=== PATIENT | female | born 1990 | race Hispanic/Latino ===

== ENCOUNTER 2017-07-21 13:33 | Emergency (ER) | payer MEDICAID ==
[2017-07-21 13:43] VITALS: BP 136/88
--- NOTE | 2017-07-21 14:29 | EDM.PDOC ---
ED HPI GENERAL MEDICAL PROBLEM - General Chief Complaint: Respiratory Problem Stated Complaint: SOB Time Seen by Provider: 07/21/17 14:09 Source of Information: Reports: Patient History Limitations: Reports: No Limitations - History of Present Illness INITIAL COMMENTS - FREE TEXT/NARRATIVE: 26-year-old female presents for evaluation treatment of shortness of breath and chest tightness. Patient reports that she first appreciated the shortness of breath last night. She states she was not doing anything in particular at the time and was simply resting. She states that she had chest tightness but this has now mostly resolved but when it does come and go last only a few seconds. She also reports associated palpitations. She reports nausea last night but the nausea has now resolved. No fevers, cough, cold symptoms or vomiting. She denies any pain in her legs are swelling in her legs. Patient reports recent travel of a flying [place] from [place] approximate 2 weeks ago. Her fianc lives in [place] and they have a home in [facility] and held back and forth. She is not on any medications. No oral contraceptive pills. - Related Data Allergies Allergy/AdvReac Type Severity Reaction Status Date / Time No Known Allergies Allergy Verified 07/21/17 13:42 Home Meds: Home Meds . [No Known Home Meds] 07/21/17 [History] Past Medical History - Past Health History Medical/Surgical History: Denies Medical/Surgical History Social & Family History - Tobacco Use Smoking Status *Q: Never Smoker - Recreational Drug Use Recreational Drug Use: No ED ROS GENERAL - Review of Systems Review Of Systems: See Below Constitutional: Denies: Fever HEENT: Denies: Ear Pain, Throat Pain Respiratory: Reports: Shortness of Breath. Denies: Cough Cardiovascular: Reports: Chest Pain (reports chest tightness ), Palpitations GI/Abdominal: Reports: Nausea (last night now resolved). Denies: Vomiting Musculoskeletal: Reports: Other (no leg swelling). Denies: Leg Pain ED EXAM, GENERAL - Physical Exam Exam: See Below Exam Limited By: No Limitations General Appearance: Alert, WD/WN, No Apparent Distress Ears: Normal External Exam, Normal Canal, Hearing Grossly Normal, Normal TMs Nose: Normal Inspection Throat/Mouth: Normal Inspection, Normal Lips, Normal Teeth, Normal Gums, Normal Oropharynx, Normal Voice, No Airway Compromise Respiratory/Chest: No Respiratory Distress, Lungs Clear, Normal Breath Sounds Cardiovascular: Normal Peripheral Pulses, Regular Rate, Rhythm, No Murmur Extremities: Normal Inspection, Non-Tender, No Pedal Edema. No: Rigo's Sign Neurological: Alert, Oriented, Normal Cognition Psychiatric: Normal Affect, Normal Mood Skin Exam: Warm, Dry, Normal Color Course - Vital Signs Last Recorded V/S: Last Vital Signs Temp 36.4 C 07/21/17 13:40 Pulse 95 07/21/17 13:40 Resp 16 07/21/17 13:40 BP 136/88 07/21/17 13:40 Pulse Ox 99 07/21/17 13:40 - Orders/Labs/Meds Orders: Active Orders 24 hr Category Date Time Status Chest 2V [CR] Stat Exams 07/21/17 14:22 Taken Labs: Laboratory Tests 07/21/17 07/21/17 07/21/17 Range/Units 14:55 14:55 14:55 WBC 6.69 (3.98-10.04) K/mm3 RBC 4.98 (3.98-5.22) M/mm3 Hgb 14.0 (11.2-15.7) gm/L Hct 42.4 (34.1-44.9) % MCV 85.1 (79.4-94.8) fl MCH 28.1 (25.6-32.2) pg MCHC 33.0 (32.2-35.5) g/dl RDW Std Deviation 36.2 L (36.4-46.3) fL Plt Count 376 H (182-369) K/mm3 MPV 9.2 L (9.4-12.3) fl Neut % (Auto) 58.6 (34.0-71.1) % Lymph % (Auto) 32.3 (19.3-51.7) % [place] % (Auto) 7.6 (4.7-12.5) % Eos % (Auto) 0.9 (0.7-5.8) Baso % (Auto) 0.3 (0.1-1.2) % Neut # (Auto) 3.92 (1.56-6.13) K/mm3 Lymph # (Auto) 2.16 (1.18-3.74) K/mm3 [place] # (Auto) 0.51 H (0.24-0.36) K/mm3 Eos # (Auto) 0.06 (0.04-0.36) K/mm3 Baso # (Auto) 0.02 (0.01-0.08) K/mm3 D-Dimer, Quantitative 0.19 (0.19-0.59) mg/L Sodium 140 (136-145) mEq/L Potassium 3.9 (3.5-5.1) mEq/L Chloride 105 (98-107) mEq/L Carbon Dioxide 29 (21-32) mEq/L Anion Gap 9.9 (5-15) BUN 12 (7-18) mg/dL Creatinine 0.8 (0.55-1.02) mg/dL Est Cr Clr Drug Dosing 77.22 mL/min Estimated GFR (MDRD) > 60 (>60) mL/min BUN/Creatinine Ratio 15.0 (14-18) Glucose 103 (74-106) mg/dL Calcium 9.6 (8.5-10.1) mg/dL TSH 3rd Generation 1.861 (0.358-3.74) uIU/mL - Radiology Interpretation Free Text/Narrative:: chest x-ray two-view shows no acute thoracic process. - Re-Assessments/Exams Free Text/Narrative Re-Assessment/Exam: 07/21/17 15:53 I reviewed the x-ray and lab results with the patient. I'm also suspicious for anxiety causing her symptoms. I will have her follow-up with family medicine. Discharge instructions as documented. Departure - Departure Time of Disposition: 15:53 Disposition: Home, Self-Care 01 Condition: Good Clinical Impression: Anxiety - Discharge Information Instructions: Dysphoria Referrals: PCP,None [Primary Care Provider] - Nela Dunn PA-C [Physician Curing Room Supervisor] - Forms: ED Department Discharge Additional Instructions: go home and rest. Follow-up with your primary care provider. If you would like a primary care provider Allyn recommend Nela Dunn Pa-C. Please call [phone] to schedule an appoint with her at the [facility]. Please return to the ER if your symptoms change or worsen. - My Orders Last 24 Hours: My Active Orders 07/21/17 14:22 Chest 2V [CR] Stat - Assessment/Plan Last 24 Hours: My Active Orders 07/21/17 14:22 Chest 2V [CR] Stat
--- NOTE | 2017-07-21 19:58 | CR ---
Chest: Two views of the chest were obtained. Comparison: No previous study. Heart size and mediastinum are normal. Lungs are clear. Bony structures are within normal limits for the patient's age. Impression: 1. Nothing acute is identified on two-view chest x-ray. Diagnostic code #1
== END 2017-07-21 16:12 | disposition home or self-care (01) ==
LOC: EDBD 13:33 → JD.ED 13:33
DX: F41.9 Anxiety disorder, unspecified (principal)
CPT/HCPCS: 36415; 71020; 71020-26; 80048; 84443; 85025; 85379; 99283; 99285

== ENCOUNTER 2017-07-30 17:22 | Emergency (ER) | payer MEDICAID ==
[2017-07-30 17:31] VITALS: BP 132/86
--- NOTE | 2017-07-30 17:32 | EDM.PDOC ---
ED HPI GENERAL MEDICAL PROBLEM - General Chief Complaint: Skin Complaint Stated Complaint: HIVES BREAKOUT Time Seen by Provider: 07/30/17 17:31 Source of Information: Reports: Patient History Limitations: Reports: No Limitations - History of Present Illness INITIAL COMMENTS - FREE TEXT/NARRATIVE: 26-year-old female presents to the ED with generalized urticaria with severe itch. This started last night and has progressed as the day has gone on. Start Zyrtec once this morning and got no relief. A [id number] mom. Been ill in any fashion or form in the last month. She took some form of herbal medication about a week ago but only took it one time. She has not taken any other meds and. She does not take aspirin Motrin or Aleve. She did have seafood last night which she's had many times in the past without any development of hives. My impression this is likely foodborne illness. She is showing no signs of respiratory embarrassment such as wheezing or cough and no diarrhea. She has no trouble swallowing. No past history of hives. Onset: Sudden Onset Date: 07/29/17 Onset Time: 22:00 Duration: Hour(s): Location: Reports: Generalized Quality: Reports: Other Severity: Moderate (generalized itching) Improves with: Reports: None Worsens with: Reports: None Context: Denies: Activity, Exercise, Lifting, Sick Contact, Trauma, Other Associated Symptoms: Reports: Other (severe pruritus.). Denies: Confusion, Chest Pain, Cough, cough w sputum, Diaphoresis, Fever/Chills, Headaches, Loss of Appetite, Malaise, Nausea/Vomiting, Rash, Seizure, Shortness of Breath, Syncope, Weakness Treatments ACID BATH MIXER: Reports: Other (see below) (Zyrtec 10 mg tablet once this morning) - Related Data Allergies Allergy/AdvReac Type Severity Reaction Status Date / Time No Known Allergies Allergy Verified 07/30/17 17:30 Home Meds: Home Meds Famotidine [Pepcid] 20 mg PO DAILY #10 tablet 07/30/17 [Rx] Prednisone [IJD: predniSONE] 20 mg PO BID #10 tab 07/30/17 [Rx] Past Medical History - Past Health History Medical/Surgical History: Denies Medical/Surgical History Social & Family History - Tobacco Use Smoking Status *Q: Never Smoker - Recreational Drug Use Recreational Drug Use: No - Living Situation & Occupation Living situation: Reports: 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.) ED ROS GENERAL - Review of Systems Review Of Systems: See Below Constitutional: Reports: No Symptoms HEENT: Reports: No Symptoms Respiratory: Reports: No Symptoms Cardiovascular: Reports: No Symptoms Endocrine: Reports: No Symptoms GI/Abdominal: Reports: No Symptoms : Reports: No Symptoms Musculoskeletal: Reports: No Symptoms Skin: Reports: No Symptoms Neurological: Reports: No Symptoms Psychiatric: Reports: No Symptoms Hematologic/Lymphatic: Reports: No Symptoms Immunologic: Reports: No Symptoms ED EXAM, SKIN/RASH Exam: See Below Exam Limited By: No Limitations General Appearance: Alert, WD/WN, Moderate Distress (due to itching.) Eye Exam: Bilateral Eye: Periorbital Changes (bilateral periorbital swelling and erythema) Throat/Mouth: Normal Inspection, Normal Lips, Normal Teeth, Normal Oropharynx, Other Head: Atraumatic, Normocephalic (uvula and floor the mouth are normal.) Neck: Normal Inspection, Supple, Non-Tender, Full Range of Motion. No: Lymphadenopathy (L), Lymphadenopathy (R) Respiratory/Chest: No Respiratory Distress, Lungs Clear, Normal Breath Sounds, No Accessory Muscle Use. No: Wheezing Cardiovascular: Normal Peripheral Pulses, Regular Rate, Rhythm, No Edema, No Gallop, No Murmur, Tachycardia (resting tachycardia at 100/m) Peripheral Pulses: 3+: Posterior Tibial (L), Posterior Tibial (R), Dorsalis Pedis (L), Dorsalis Pedis (R) GI/Abdominal: Normal Bowel Sounds, Soft, Non-Tender, No Organomegaly, No Abnormal Bruit, No Mass, Pelvis Stable Back Exam: Normal Inspection, Full Range of Motion. No: CVA Tenderness (L), CVA Tenderness (R) Extremities: Normal Inspection, Normal Range of Motion, Non-Tender, Normal Capillary Refill Neurological: Alert, Oriented, CN II-XII Intact, Normal Cognition Location, Skin: Generalized Characteristics: Urticarial Associated features: Warmth, Tenderness, Swelling Course - Vital Signs Last Recorded V/S: Last Vital Signs Temp 36.6 C 07/30/17 17:28 Pulse 102 H 07/30/17 17:28 Resp 18 07/30/17 17:28 BP 132/86 07/30/17 17:28 Pulse Ox 100 07/30/17 17:28 - Orders/Labs/Meds Meds: Medications Discontinued Medications Generic Name Dose Route Start Last Admin Trade Name Shayy PRN Reason Stop Dose Admin Diphenhydramine HCl 50 mg 07/30/17 17:40 07/30/17 17:46 Benadryl PO 07/30/17 17:41 50 mg ONETIME ONE Administration Famotidine 20 mg 07/30/17 17:40 07/30/17 17:46 Pepcid PO 07/30/17 17:41 20 mg ONETIME ONE Administration Prednisone 30 mg 07/30/17 17:39 07/30/17 17:46 Prednisone PO 07/30/17 17:40 30 mg ONETIME ONE Administration - Radiology Interpretation Free Text/Narrative:: 26-year-old female presents to the ED with generalized hives. Most likely this is foodborne but not able to prove this. She did have seafood for supper last night and developed the hives 4 hours later. She's had shrimp and lobster in the past and is never developed hives. At any rate she has generalized urticaria. She'll be treated with prednisone 30 mg by mouth now with Benadryl 50 mg by mouth now and Pepcid 20 mg by mouth now. Discharge home medications will be prednisone 20 mg and Pepcid 20 mg twice a day with breakfast and supper for 5 days. She will use Benadryl every 6 hours 50 mg as needed for itch relief. Follow-up if not markedly improved in 48 hours time or if recurrence of symptoms within 48 hours of stopping the steroids. Departure - Departure Time of Disposition: 17:41 Disposition: Home, Self-Care 01 Condition: Fair Clinical Impression: Urticaria - Discharge Information Prescriptions: Famotidine [Pepcid] 20 mg PO DAILY #10 tablet Prednisone [IJD: predniSONE] 20 mg PO BID #10 tab Referrals: PCP,None [Primary Care Provider] - Forms: ED Department Discharge Additional Instructions: evaluation in the emergency department today in regards to break out in hives. Last evening and has continued throughout the day and worsening. No respiratory embarrassment or trouble swallowing. No past history of hives. This is most likely of foodborne trigger. Usually something you be within 24 hours to set this off. As we discussed you did have lobster and seafood last night i.e. shrimp which may or may not be the culprit. The only way to find out is to rechallenge herself with these foods in a week or 2. Treatment at this time is prednisone 20 mg with breakfast and supper for 5 days. Pepcid 20 mg with breakfast and supper for 5 days as well. Benadryl 50 mg every 6 hours as needed for relief of itching until the hives are gone. Usually the steroids are working quite well within 24 hours and hives should disappear over the next 24- 48 hours.return to medical care if you develop any trouble swallowing or breathing. This is highly unlikely to happen. The other reason to return to medical care would be of within a few days of stopping the steroids you break out in hives once again.
[2017-07-30] MEDS ORDERED: predniSONE 20 MG Tab PO ONE (17:39)
[2017-07-30] MEDS ORDERED: diphenhydrAMINE 50 MG Cap PO ONE (17:40)
[2017-07-30] MEDS ORDERED: Famotidine 20 MG Tab PO ONE (17:40)
== END 2017-07-30 17:53 | disposition home or self-care (01) ==
LOC: JD.ED 17:22
DX: L50.9 Urticaria, unspecified (principal); Z79.899 Other long term (current) drug therapy
CPT/HCPCS: 99283; A9270

== ENCOUNTER 2017-07-31 11:21 | Emergency (ER) | payer MEDICAID ==
[2017-07-31 11:32] VITALS: BP 143/80
[2017-07-31] MEDS ORDERED: Sodium Chloride 0.9% 10 ML Syringe FLUSH PRN (12:00)
[2017-07-31] MEDS ORDERED: methylPREDNISolone Sodium Succinate 125 MG/2 ML SDV IVPUSH ONE (12:00)
--- NOTE | 2017-07-31 12:03 | EDM.PDOC ---
ED HPI GENERAL MEDICAL PROBLEM - General Chief Complaint: Allergic Reaction Stated Complaint: HIVES WORSE THAN YESTERDAY Time Seen by Provider: 07/31/17 12:01 Source of Information: Reports: Patient History Limitations: Reports: No Limitations - History of Present Illness INITIAL COMMENTS - FREE TEXT/NARRATIVE: 26-year-old female presents for evaluation treatment of hives. Patient reports that this is day 3 of her hives outbreak. In the ER last night. She was given Pepcid, prednisone and Benadryl in the ER here last night. She was instructed to take Benadryl every 6 hours, Pepcid twice a day and prednisone twice a day for the next 5 days. She reports that she did take the Benadryl, Pepcid and prednisone at 9 AM this morning. She feels that her symptoms are worsening. She continues to have no shortness of breath, throat swelling or chest pain. She feels the hives are worsening and she reports some numbness sensation to her ears in her neck. She states that the rash does not hurt but is pruritic around the neck. She denies any joint aches or pains. She denies any trigger that she can think of. Consideration of his seafood causing symptoms last night. She has eaten seafood in the past with no problem. No recent or new medications. No changes in detergent soaps, lotions, etc. - Related Data Allergies Allergy/AdvReac Type Severity Reaction Status Date / Time No Known Allergies Allergy Verified 07/30/17 17:30 Home Meds: Home Meds Famotidine [Pepcid] 20 mg PO DAILY #10 tablet 07/30/17 [Rx] Prednisone [IJD: predniSONE] 20 mg PO BID #10 tab 07/30/17 [Rx] diphenhydrAMINE [Benadryl] 50 mg PO Q6H PRN 07/31/17 [History] Past Medical History - Past Health History Medical/Surgical History: Denies Medical/Surgical History Social & Family History - Tobacco Use Smoking Status *Q: Never Smoker - Caffeine Use Caffeine Use: Reports: Coffee, Tea - Recreational Drug Use Recreational Drug Use: No - Living Situation & Occupation Living situation: Reports: 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.) ED ROS ALLERGIC REACTION - Review of Systems Review Of Systems: See Below HEENT: Denies: Throat Swelling Respiratory: Denies: Shortness of Breath, Cough Cardiovascular: Denies: Chest Pain Skin: Reports: Pruritis, Rash (worse to the face, neck, chest and bacl but also present on the legs, arms and abdomen), Other (no blistering) ED EXAM GENERAL NO PERIP PULSE - Physical Exam Exam: See Below Exam Limited By: No Limitations General Appearance: Alert, WD/WN, No Apparent Distress Throat/Mouth: Normal Inspection, Normal Lips, Normal Oropharynx, Normal Voice, No Airway Compromise Respiratory/Chest: No Respiratory Distress, Lungs Clear, Normal Breath Sounds Cardiovascular: Normal Peripheral Pulses, Regular Rate, Rhythm, No Murmur Neurological: Alert, Oriented, Normal Cognition Psychiatric: Normal Affect, Normal Mood Skin Exam: Warm, Dry, Erythema (erythematous, blanching, macules present to the face, chest, back, abdomen, arms and legs; no blistering; negative nikolsky's sign) Course - Vital Signs Last Recorded V/S: Last Vital Signs Temp 37.7 C 07/31/17 11:31 Pulse 127 H 07/31/17 11:31 Resp 20 07/31/17 11:31 BP 143/80 H 07/31/17 11:31 Pulse Ox 100 07/31/17 11:31 - Orders/Labs/Meds Orders: Active Orders 24 hr Category Date Time Status Peripheral IV Care [RC] . DIRECTED Care 07/31/17 12:01 Active Peripheral IV Insertion Adult [OM.PC] Routine Oth 07/31/17 12:00 Ordered Labs: Laboratory Tests 07/31/17 07/31/17 Range/Units 12:05 12:05 WBC 15.58 H (3.98-10.04) K/mm3 RBC 4.95 (3.98-5.22) M/mm3 Hgb 14.0 (11.2-15.7) gm/L Hct 42.8 (34.1-44.9) % MCV 86.5 (79.4-94.8) fl MCH 28.3 (25.6-32.2) pg MCHC 32.7 (32.2-35.5) g/dl RDW Std Deviation 37.9 (36.4-46.3) fL Plt Count 352 (182-369) K/mm3 MPV 8.9 L (9.4-12.3) fl Neut % (Auto) 90.2 H (34.0-71.1) % Lymph % (Auto) 6.4 L (19.3-51.7) % [place] % (Auto) 3.0 L (4.7-12.5) % Eos % (Auto) 0.1 L (0.7-5.8) Baso % (Auto) 0.1 (0.1-1.2) % Neut # (Auto) 14.05 H (1.56-6.13) K/mm3 Lymph # (Auto) 1.00 L (1.18-3.74) K/mm3 [place] # (Auto) 0.47 H (0.24-0.36) K/mm3 Eos # (Auto) 0.01 L (0.04-0.36) K/mm3 Baso # (Auto) 0.02 (0.01-0.08) K/mm3 Manual Slide Review Abnormal smear Sodium 140 (136-145) mEq/L Potassium 3.9 (3.5-5.1) mEq/L Chloride 105 (98-107) mEq/L Carbon Dioxide 26 (21-32) mEq/L Anion Gap 12.9 (5-15) BUN 9 (7-18) mg/dL Creatinine 0.8 (0.55-1.02) mg/dL Est Cr Clr Drug Dosing TNP Estimated GFR (MDRD) > 60 (>60) mL/min BUN/Creatinine Ratio 11.3 L (14-18) Glucose 122 H (74-106) mg/dL Calcium 9.1 (8.5-10.1) mg/dL Total Bilirubin 0.8 (0.2-1.0) mg/dL AST 14 L (15-37) U/L ALT 17 (14-59) U/L Alkaline Phosphatase 57 (46-116) U/L C-Reactive Protein 0.3 (<1.0) mg/dL Total Protein 8.1 (6.4-8.2) g/dl Albumin 4.1 (3.4-5.0) g/dl Globulin 4.0 gm/dL Albumin/Globulin Ratio 1.0 (1-2) Meds: Medications Discontinued Medications Generic Name Dose Route Start Last Admin Trade Name Freq PRN Reason Stop Dose Admin Methylprednisolone Sodium Succinate 125 mg 07/31/17 12:00 07/31/17 12:13 Solu-Medrol IVPUSH 07/31/17 12:01 125 mg ONETIME ONE Administration Sodium Chloride 10 ml 07/31/17 12:00 07/31/17 12:16 Saline Flush FLUSH 10 ml ASDIRECTED PRN Administration Keep Vein Open - Re-Assessments/Exams Free Text/Narrative Re-Assessment/Exam: 07/31/17 12:02 Plan is to check some labs to ensure we are not missing anything. Will also give her Solu-Medrol here in the ER. She is currently on appropriate treatment for hives . Difficult to say if this is seafood causing allergy versus viral infection versus some other trigger. 07/31/17 13:13 Reviewed the labs with the patient. Hives have improved since entering the ER. She is to follow-up with dermatology if her symptoms do not improve. Will discharge home at this time. Discharge instructions as documented. Departure - Departure Time of Disposition: 13:14 Disposition: Home, Self-Care 01 Condition: Good Clinical Impression: Urticaria - Discharge Information Instructions: Hives, [id number] Referrals: PCP,None [Primary Care Provider] - Forms: ED Department Discharge Additional Instructions: Continue on the benadryl and pepcid as prescribed. Skip your prednisone dose this evening, resume prednisone as prescribed tomorrow. If you continue to have hives beyond one week follow-up with dermatology. Please let us know if you need help with a referral, most pillowcase cleaner do not require a referral. Make sure you are drinking plenty of fluids. Please return to the ER should your symptoms change or worsen. In particular return for shortness of breath, throat swelling or any other concerning symptom. - My Orders Last 24 Hours: My Active Orders 07/31/17 12:00 Peripheral IV Insertion Adult [OM.PC] Routine 07/31/17 12:01 Peripheral IV Care [RC] . DIRECTED - Assessment/Plan Last 24 Hours: My Active Orders 07/31/17 12:00 Peripheral IV Insertion Adult [OM.PC] Routine 07/31/17 12:01 Peripheral IV Care [RC] . DIRECTED
== END 2017-07-31 13:25 | disposition home or self-care (01) ==
LOC: JD.ED 11:21
DX: L50.9 Urticaria, unspecified (principal); Z79.899 Other long term (current) drug therapy
CPT/HCPCS: 36415; 80053; 85025; 86140; 96374; 99283; J2930; J7050

== ENCOUNTER 2017-10-29 19:45 | Emergency (ER) | payer MEDICAID ==
[2017-10-29 19:54] VITALS: BP 128/81
--- NOTE | 2017-10-29 21:14 | EDM.PDOC ---
ED HPI GENERAL MEDICAL PROBLEM - General Chief Complaint: Upper Extremity Injury/Pain Stated Complaint: NUMBNESS IN BOTH ARMS AND LEG Time Seen by Provider: 10/29/17 19:52 Source of Information: Reports: Patient, Old Records History Limitations: Reports: No Limitations - History of Present Illness INITIAL COMMENTS - FREE TEXT/NARRATIVE: Medical records indicate that the patient was seen in this ED on 07/21/2017 with a complaint of dyspnea, chest tightness, and palpitations that would come and go. At this time, her oxygen saturation was noted to be 99% on room air. Her physical examination was unremarkable. CBC was normal. Her d-dimer was within normal limits. A BMP was normal. A TSH was within normal limits. A chest radiograph was unremarkable. The provider felt that the patient was likely suffering from anxiety, and referred the patient to Nela Dunn for follow-up. The patient states that she did not follow-up. The patient was then seen again in this ED on 07/30/2017 with a complaint of generalized urticaria with pruritus. There was some suspicion that it could be related to recently eaten shrimp, although the patient was not complaining of any gastrointestinal problems. She had tried some [id number] Zyrtec without relief. Her oxygen saturation was noted to be 100% on room air, and she was tachycardic. Her physical exam found generalized urticaria, but no angioedema, and her lungs were clear to auscultation. She was given oral prednisone, oral Benadryl, and oral Pepcid, before being discharged home with prescriptions for prednisone and Pepcid. She was also instructed to continue to take oral Benadryl. The patient returned to the ED the following day, 07/31/2017, with continued urticaria despite taking the prednisone, Benadryl, and Pepcid as directed. Her oxygen saturation was found to be 100% on room air, and she was tachycardic. Again, no angioedema was found, the patient's lungs were clear to auscultation bilaterally. Generalized urticaria was found. She had an elevated WBC count of 15.58, but a manual differential was not obtained. A CMP was unremarkable. A C- reactive protein was within normal limits. The patient was given IV Solu-Medrol before being discharged home. The patient states that her urticaria resolved after about 2 days. She did not follow-up. She states that she has eaten shrimp since then, without any problems. The patient now presents with a complaint of bilateral entire upper extremity numbness and tingling on off since yesterday, as well as right leg numbness on and off today. She states that she has had a tightness sensation in her throat around noon today, and she reports feeling dyspneic about 2 hours ago. She is not sure if she feels that way now. She denies prior similar symptoms. She has not tried any home remedies. Here in the ED, the patient's oxygen saturation is noted to be 99%, and she is tachycardic at 109 bpm. The patient does not have a PCP. Bilateral Upper Arm Pain Score (Numeric/FACES): 3 - Related Data Allergies Allergy/AdvReac Type Severity Reaction Status Date / Time No Known Allergies Allergy Verified 10/29/17 19:51 Home Meds: Home Meds . 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 ED EXAM, GENERAL - Physical Exam Exam: See Below Exam Limited By: No Limitations General Appearance: Alert, WD/WN, No Apparent Distress Eye Exam: Bilateral Eye: EOMI, Normal Inspection, PERRL Ears: Normal External Exam, Hearing Grossly Normal Nose: Normal Inspection, No Blood Throat/Mouth: Normal Inspection, Normal Lips, Normal Voice, No Airway Compromise Head: Atraumatic, Normocephalic Neck: Normal Inspection, Full Range of Motion Respiratory/Chest: No Respiratory Distress, Lungs Clear, Normal Breath Sounds, No Accessory Muscle Use Cardiovascular: Normal Peripheral Pulses, No Gallop, No JVD, No Murmur, No Rub, Tachycardia (regular) Peripheral Pulses: 4+: Radial (L), Radial (R) GI/Abdominal: Normal Bowel Sounds, Soft, Non-Tender, No Organomegaly, No Distention, No Abnormal Bruit, No Mass (Female) Exam: Deferred Rectal (Female) Exam: Deferred Back Exam: Normal Inspection, Full Range of Motion, NT Extremities: Normal Inspection, Normal Range of Motion, No Pedal Edema, Normal Capillary Refill Neurological: Alert, Oriented, CN II-XII Intact, Normal Cognition, No Motor/ Sensory Deficits Psychiatric: Normal Affect, Anxious Skin Exam: Warm, Dry, Intact, Normal Color, No Rash EKG INTERPRETATION EKG Date: 10/29/17 Time: 21:03 Rhythm: Other (Sinus tachycardia) Rate (Beats/Min): 102 Mclean: Normal P-Wave: Present QRS: Normal ST-T: Normal QT: Normal Comparison: NA - No Prior EKG Course - Vital Signs Last Recorded V/S: Last Vital Signs Temp 37.1 C 10/29/17 19:52 Pulse 109 H 10/29/17 19:52 Resp 16 10/29/17 19:52 BP 128/81 10/29/17 19:52 Pulse Ox 99 10/29/17 19:52 - Orders/Labs/Meds Orders: Active Orders 24 hr Category Date Time Status EKG Documentation Completion [RC] STAT Care 10/29/17 20:53 Active Chest 2V [CR] Stat Exams 10/29/17 20:53 Taken Labs: Laboratory Tests 10/29/17 10/29/17 10/29/17 Range/Units 21:09 21:09 21:09 WBC 8.12 (3.98-10.04) K/mm3 RBC 4.93 (3.98-5.22) M/mm3 Hgb 13.8 (11.2-15.7) gm/L Hct 41.4 (34.1-44.9) % MCV 84.0 (79.4-94.8) fl MCH 28.0 (25.6-32.2) pg MCHC 33.3 (32.2-35.5) g/dl RDW Std Deviation 35.9 L (36.4-46.3) fL Plt Count 364 (182-369) K/mm3 MPV 8.9 L (9.4-12.3) fl Neutrophils % (Manual) 53 (40-60) % Band Neutrophils % 0 (0-10) % Lymphocytes % (Manual) 41 H (20-40) % Atypical Lymphs % 0 % Monocytes % (Manual) 4 (2-10) % Eosinophils % (Manual) 2 (0.7-5.8) % Basophils % (Manual) 0 L (0.1-1.2) Platelet Estimate Adequate RBC Morph Comment Normal PT 10.8 (8.0-13.0) SECONDS INR 0.99 APTT 28 (22-36) SECONDS D-Dimer, Quantitative < 0.19 L (0.19-0.59) mg/L Puncture Site ABG pH (7.35-7.45) ABG pCO2 (35.0-45.0) mmHg ABG pO2 (80.0-100.0) mmHg ABG HCO3 (22.0-26.0) meq/L ABG O2 Saturation (96.0-97.0) % ABG Base Excess (-2-2.0) Avtar Test O2 Delivery Device Oxygen Flow Rate FiO2 (21.00-100.00) % Sodium 141 (136-145) mEq/L Potassium 3.5 (3.5-5.1) mEq/L Chloride 106 (98-107) mEq/L Carbon Dioxide 26 (21-32) mEq/L Anion Gap 12.5 (5-15) BUN 8 (7-18) mg/dL Creatinine 0.8 (0.55-1.02) mg/dL Est Cr Clr Drug Dosing 77.22 mL/min Estimated GFR (MDRD) > 60 (>60) mL/min BUN/Creatinine Ratio 10.0 L (14-18) Glucose 111 H (74-106) mg/dL Calcium 9.6 (8.5-10.1) mg/dL Magnesium 2.1 (1.8-2.4) mg/dl Total Bilirubin 0.5 (0.2-1.0) mg/dL AST 15 (15-37) U/L ALT 20 (14-59) U/L Alkaline Phosphatase 63 (46-116) U/L Troponin I < 0.017 (0.00-0.056) ng/mL NT-Pro-B Natriuret Pep 17 (0-125) pg/mL Total Protein 8.2 (6.4-8.2) g/dl Albumin 4.3 (3.4-5.0) g/dl Globulin 3.9 gm/dL Albumin/Globulin Ratio 1.1 (1-2) TSH 3rd Generation 1.201 (0.358-3.74) uIU/mL Urine Color (Yellow) Urine Appearance (Clear) Urine pH (5.0-8.0) Ur Specific Alpine (1.005-1.030) Urine Protein (Negative) Urine Glucose (UA) (Negative) Urine Ketones (Negative) Urine Occult Blood (Negative) Urine Nitrite (Negative) Urine Bilirubin (Negative) Urine Urobilinogen (0.2-1.0) Ur Leukocyte Esterase (Negative) Urine RBC (0-5) /hpf Urine WBC (0-5) /hpf Ur Epithelial Cells (0-5) /hpf Urine Bacteria (FEW) /hpf Urine Mucus (FEW) /hpf Urine HCG, Qual (NEGATIVE) 10/29/17 10/29/17 10/29/17 Range/Units 21:13 21:25 21:25 WBC (3.98-10.04) K/mm3 RBC (3.98-5.22) M/mm3 Hgb (11.2-15.7) gm/L Hct (34.1-44.9) % MCV (79.4-94.8) fl MCH (25.6-32.2) pg MCHC (32.2-35.5) g/dl RDW Std Deviation (36.4-46.3) fL Plt Count (182-369) K/mm3 MPV (9.4-12.3) fl Neutrophils % (Manual) (40-60) % Band Neutrophils % (0-10) % Lymphocytes % (Manual) (20-40) % Atypical Lymphs % % Monocytes % (Manual) (2-10) % Eosinophils % (Manual) (0.7-5.8) % Basophils % (Manual) (0.1-1.2) Platelet Estimate RBC Morph Comment PT (8.0-13.0) SECONDS INR APTT (22-36) SECONDS D-Dimer, Quantitative (0.19-0.59) mg/L Puncture Site Lt radial ABG pH 7.44 (7.35-7.45) ABG pCO2 32.9 L (35.0-45.0) mmHg ABG pO2 94.0 (80.0-100.0) mmHg ABG HCO3 22.2 (22.0-26.0) meq/L ABG O2 Saturation 99.3 H (96.0-97.0) % ABG Base Excess -0.4 (-2-2.0) Avtar Test Positive O2 Delivery Device Room air Oxygen Flow Rate 0.0 FiO2 21.00 (21.00-100.00) % Sodium (136-145) mEq/L Potassium (3.5-5.1) mEq/L Chloride (98-107) mEq/L Carbon Dioxide (21-32) mEq/L Anion Gap (5-15) BUN (7-18) mg/dL Creatinine (0.55-1.02) mg/dL Est Cr Clr Drug Dosing mL/min Estimated GFR (MDRD) (>60) mL/min BUN/Creatinine Ratio (14-18) Glucose (74-106) mg/dL Calcium (8.5-10.1) mg/dL Magnesium (1.8-2.4) mg/dl Total Bilirubin (0.2-1.0) mg/dL AST (15-37) U/L ALT (14-59) U/L Alkaline Phosphatase (46-116) U/L Troponin I (0.00-0.056) ng/mL NT-Pro-B Natriuret Pep (0-125) pg/mL Total Protein (6.4-8.2) g/dl Albumin (3.4-5.0) g/dl Globulin gm/dL Albumin/Globulin Ratio (1-2) TSH 3rd Generation (0.358-3.74) uIU/mL Urine Color Yellow (Yellow) Urine Appearance Clear (Clear) Urine pH 7.0 (5.0-8.0) Ur Specific Alpine 1.015 (1.005-1.030) Urine Protein Negative (Negative) Urine Glucose (UA) Negative (Negative) Urine Ketones Negative (Negative) Urine Occult Blood 1+ H (Negative) Urine Nitrite Negative (Negative) Urine Bilirubin Negative (Negative) Urine Urobilinogen 0.2 (0.2-1.0) Ur Leukocyte Esterase Trace H (Negative) Urine RBC 0-5 (0-5) /hpf Urine WBC 0-5 (0-5) /hpf Ur Epithelial Cells 5-10 H (0-5) /hpf Urine Bacteria Few (FEW) /hpf Urine Mucus Few (FEW) /hpf Urine HCG, Qual Negative (NEGATIVE) - Re-Assessments/Exams Free Text/Narrative Re-Assessment/Exam: 10/29/17 21:54 Two-view chest radiograph appears to be grossly normal. Cardiac silhouette is within normal limits. No pulmonary vascular congestion. No pleural effusions. No focal infiltrate. No pneumothorax. Formal read per the Radiologist pending. 10/29/17 23:16 Test results discussed with the patient. Today's workup is unremarkable, and consistent with chronic hyperventilation syndrome. Known causes of hyperventilation, such as metabolic acidosis, hypocalcemia, hypoglycemia, hyperthyroidism, liver failure, severe anemia, sepsis, acute coronary event, pneumothorax, pneumonia, dysrhythmia, PE, and CHF have been ruled out. By a process of elimination, the patient's hyperventilation is most likely due to anxiety. I suspect that the shortness of breath and chest tightness that the patient experienced when she was seen on 07/21/2017 was likely due to hyperventilation, as well as the idiopathic urticaria that she had when she was seen on 07/30/2017 and 07/31/2017. I am recommending that she follow-up with Dr. Sara Campos to discuss anxiety treatment options. The patient is agreeable. Departure - Departure Time of Disposition: 23:17 Disposition: Home, Self-Care 01 Condition: Good Clinical Impression: Hyperventilation syndrome - Discharge Information Referrals: PCP,None [Primary Care Provider] - Sara Campos MD [Physician] - Forms: ED Department Discharge Additional Instructions: You were seen in the emergency room for tingling and numbness of both of your arms, and right leg, along with a tightness sensation in her throat and shortness of breath. Workup in the ER included blood work, an arterial blood gas, a urinalysis, a urine test, an ECG, and a chest x-ray. Your workup showed that you have chronic hyperventilation. Hyperventilation is usually caused by anxiety, although can be caused by a variety of medical conditions including metabolic acidosis, hypocalcemia, hypoglycemia, hyperthyroidism, liver failure, severe anemia, sepsis, acute coronary event, pneumothorax, pneumonia, dysrhythmia, PE, and CHF. These have been ruled out. By a process of elimination, your hyperventilation is MOST LIKELY caused by anxiety. Review of your prior medical records indicates that the shortness of breath and chest tightness that you were experiencing when you were seen in the ER on 2016 was likely due to hyperventilation, as well as the "stress hives" that you had when you were seen on 07/30/2017 and 07/31/2017. Hyperventilation is not dangerous, but can be unpleasant. We recommend you follow-up with Dr. Sara Campos, to discuss anxiety treatment options. If any other problems, please do not hesitate to return to the ER. - My Orders Last 24 Hours: My Active Orders 10/29/17 20:53 EKG Documentation Completion [RC] STAT Chest 2V [CR] Stat - Assessment/Plan Last 24 Hours: My Active Orders 10/29/17 20:53 EKG Documentation Completion [RC] STAT Chest 2V [CR] Stat
--- NOTE | 2017-10-30 09:14 | CR ---
Chest: Two views of the chest were obtained. Comparison: Prior chest x-ray of 07/21/17. Heart size and mediastinum are normal. Lungs are clear. Bony structures are unremarkable. Impression: 1. Nothing acute is identified on two-view chest x-ray. Diagnostic code #1
== END 2017-10-29 23:30 | disposition home or self-care (01) ==
LOC: JD.ED 19:45
DX: F45.8 Other somatoform disorders (principal)
CPT/HCPCS: 36415; 36600; 71046; 71046-26; 80053; 81001; 81025; 82803; 83735; 83880; 84443; 84484; 85025; 85379; 85610; 85730; 93005; 93010; 99284; 99284-25

== ENCOUNTER 2021-07-11 07:10 | Inpatient (IN) | payer BC ==
[~2021-07-11 07:10] MED LIST: Bupivacaine 0.25% 10 ML SDV ONE
[2021-07-11] MEDS ORDERED: Nalbuphine 10 MG/1 ML Vial IVPUSH PRN (07:13)
[2021-07-11] MEDS ORDERED: Sodium Chloride 0.9% 10 ML Syringe FLUSH PRN (07:13)
[2021-07-11] MEDS ORDERED: Ondansetron 4 MG/2 ML SDV IVPUSH PRN (07:13)
[2021-07-11] MEDS ORDERED: Oxytocin/Lactated Ringers 10 UNIT/1,000 ML BAG IV SCH ×2 (07:15)
--- NOTE | 2021-07-11 07:17 | PCM.LDHP ---
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 Since that time has been having MCA doppler studies without findings of anemia. Patient herself doing well. No contractions. Last delivery was a for intolerance which occurred shortly after receiving her epidural. - Related Data Allergies/Adverse Reactions: Allergies Allergy/AdvReac Type Severity Reaction Status Date / Time No Known Allergies Allergy Verified 10/29/17 19:51 Home Medications: Home Meds . 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 (Approximate): Hematologic History: Reports: Anemia - Past Surgical History Female Surgical History: Reports: Section Social & Family History - Tobacco Use Tobacco Use Status *Q: Never Tobacco User - Caffeine Use Caffeine Use: Reports: Coffee, Tea - Alcohol Use Alcohol Use History: No - Recreational Drug Use Recreational Drug Use: No - Living Situation & Occupation Living situation: Reports: Occupation: Unemployed ([id number] mom.) H&P Review of Systems - Review of Systems: Review Of Systems: See Below General: Reports: No Symptoms Pulmonary: Reports: No Symptoms Cardiovascular: Reports: No Symptoms Gastrointestinal: Reports: No Symptoms Genitourinary: Reports: No Symptoms Musculoskeletal: Reports: No Symptoms Psychiatric: Reports: No Symptoms Neurological: Reports: No Symptoms L&D Exam - Exam Exam: See Below - OB Specific Contraction Intensity: Irritability Movement: Active Heart Tones: Present Heart Tones per Min: 140 Heart Rate (FHR) Variability: Moderate (6-25 bpm) Presentation: Vertex - Joshua Score Joshua Score Cervix Position: Midposition Joshua Score Consistency: Soft Joshua Score Effacement: 51-70% Joshua Score Dilation: 1-2 cm (2-3) Joshua Score Infant's Station: -2 Joshua Score Total: 7 - Exam General: Alert, Oriented, Cooperative Lungs: Clear to Auscultation, Normal Respiratory Effort Cardiovascular: Regular Rate, Regular Rhythm GI/Abdominal Exam: Soft, Non-Tender Genitourinary: Normal external exam Extremities: Normal Inspection Skin: Warm, Dry, Intact - Patient Data Result Diagrams: 07/11/21 07:32 - Problem List (1) 38 weeks gestation of SNOMED Code(s): 25337547 ICD Code: Z3A.38 - 38 WEEKS GESTATION OF Status: Acute Current Visit: Yes (2) History of delivery SNOMED Code(s): 706962135 ICD Code: Z98.891 - HISTORY OF UTERINE SCAR FROM PREVIOUS SURGERY Status: Acute Current Visit: Yes (3) Desires (vaginal after ) trial SNOMED Code(s): 028949439, 646982611 ICD Code: O34.219 - MATERNAL CARE FOR UNSP TYPE SCAR FROM PREVIOUS DEL Status: Acute Current Visit: Yes (4) 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 SNOMED Code(s): 373850406, 226540019 ICD Code: O36.1930 - MATERNAL CARE FOR OTH ISOIMMUNIZATION, THIRD TRIMESTER, UNSP Status: Acute Current Visit: Yes (5) Rubella non-immune status, antepartum SNOMED Code(s): 112103781 ICD Code: O99.891 - OTH DISEASES AND CONDITIONS COMPLICATING ; Z28.3 - UNDERIMMUNIZATION STATUS Status: Acute Current Visit: Yes Problem List Initiated/Reviewed/Updated: Yes Orders Last 24hrs: Active Orders 24 hr Category Date Time Status Patient Status [ADT] Routine ADT 07/11/21 07:13 Ordered Activity as Tolerated [RC] PFP Care 07/11/21 07:13 Ordered Communication Order [RC] ASDIRECTED Care 07/11/21 07:13 Ordered Communication Order [RC] ASDIRECTED Care 07/11/21 07:13 Ordered Communication Order [RC] ASDIRECTED Care 07/11/21 07:13 Ordered Heart Tones [RC] ASDIRECTED Care 07/11/21 07:14 Ordered Monitoring [RC] INTERMITTENT Care 07/11/21 07:13 Ordered Non Stress Test [RC] PER UNIT ROUTINE Care 07/11/21 07:13 Ordered Notify Provider [RC] ASDIRECTED Care 07/11/21 07:13 Ordered Notify Provider [RC] PFP Care 07/11/21 07:13 Ordered Notify Provider [RC] PRN Care 07/11/21 07:13 Ordered Peripheral IV Care [RC] . DIRECTED Care 07/11/21 07:14 Ordered Up ad Petra [RC] ASDIRECTED Care 07/11/21 07:14 Ordered Vaginal Exam [RC] ASDIRECTED Care 07/11/21 07:13 Ordered Vital Signs [RC] ASDIRECTED Care 07/11/21 07:13 Ordered Regular Diet [DIET] Diet 07/11/21 Breakfast Ordered CBC W/O DIFF,HEMOGRAM [HEME] Routine Lab 07/11/21 07:13 Ordered CORONAVIRUS COVID-19 NIKITA [MOLEC] Stat Lab 07/11/21 07:15 Ordered HEP C VIRUS AB [REF] Routine Lab 07/11/21 07:13 Ordered RAPID PLASMA REAGIN,RPR [CHEM] Routine Lab 07/11/21 07:13 Ordered TYPE AND SCREEN [BBK] Routine Lab 07/11/21 07:13 Ordered Lactated Ringers [Ringers, Lactated] 1,000 ml Med 07/11/21 07:15 Ordered IV ASDIRECTED Nalbuphine [Nubain] Med 07/11/21 07:13 Ordered 10 mg IVPUSH Q2H PRN Ondansetron [Zofran] Med 07/11/21 07:13 Ordered 4 mg IVPUSH Q4H PRN Oxytocin/Lactated Ringers [Pitocin in LR 10 Units/1,000 Med 07/11/21 07:15 Ordered ML] 10 unit in 1,000 ml IV .CONTINUOUS Oxytocin/Lactated Ringers [Pitocin in LR 10 Units/1,000 Med 07/11/21 07:15 Ordered ML] 10 unit in 1,000 ml IV TITRATE Sodium Chloride 0.9% [Saline Flush] Med 07/11/21 07:13 Ordered 10 ml FLUSH ASDIRECTED PRN Electronic Heart Tones Ext w TOCO [WOMSER] Oth 07/11/21 07:13 Ordered Routine Electronic Heart Tones Internal [WOMSER] Per Unit Oth 07/11/21 07:13 Ordered Routine Peripheral IV Insertion Adult [OM.PC] Routine Oth 07/11/21 07:13 Ordered Resuscitation Status Routine Resus Stat 07/11/21 07:13 Ordered Assessment/Plan Comment:: Patient presents for IOL/TOLAC for maternal atypical antibody. So far no findings of anemia on MFM evaluation * Labs done * GBS negative * Cook balloon catheter placed. Begin pitocin as well. AROM when able * Pain management per patient preference * Anticipate
[2021-07-11] MEDS: Lactated Ringers 1,000 ML IV SCH ×4 (08:08→20:32)
--- NOTE | 2021-07-11 08:37 | PCM.PREANE ---
Preanesthetic Assessment - Procedure Proposed Procedure: Labor epidural - Anesthesia/Transfusion/Family Hx Anesthesia History: Prior Anesthesia Reaction (Reaction to epidural-low BP for patient and HR dropped for baby) Family History of Anesthesia Reaction: No Transfusion History: No Prior Transfusion(s) Intubation History: Unknown - Review of Systems General: No Symptoms Pulmonary: No Symptoms Cardiovascular: No Symptoms Gastrointestinal: Abdominal Pain (uterine contractions) Neurological: No Symptoms Other: Reports: None - Physical Assessment NPO Status Date: 07/10/21 NPO Status Time: 19:00 Vital Signs: 115/75 97% 16 RR 98.9 HR 79 Height: 1.52 m Weight: 75.75 kg ASA Class: 2 Mental Status: Alert & Oriented x3 Airway Class: Mallampati = 2 Thyro-Mental Finger Breadths: 2 Mouth Opening Finger Breadths: 2 ROM/Head Extension: Full Lungs: Clear to Auscultation, Normal Respiratory Effort Cardiovascular: Regular Rate, Regular Rhythm, Murmurs (Mild murmur) - Lab Values: Laboratory Last Values WBC 7.68 K/mm3 (3.98-10.04) 07/11/21 07:32 RBC 4.26 M/mm3 (3.98-5.22) 07/11/21 07:32 Hgb 12.6 gm/dl (11.2-15.7) 07/11/21 07:32 Hct 38.8 % (34.1-44.9) 07/11/21 07:32 MCV 91.1 fl (79.4-94.8) D 07/11/21 07:32 MCH 29.6 pg (25.6-32.2) 07/11/21 07:32 MCHC 32.5 g/dl (32.2-35.5) 07/11/21 07:32 RDW Std Deviation 42.1 fL (36.4-46.3) 07/11/21 07:32 Plt Count 351 K/mm3 (182-369) 07/11/21 07:32 MPV 9.7 fl (9.4-12.3) 07/11/21 07:32 - Allergies Allergies/Adverse Reactions: Allergies Allergy/AdvReac Type Severity Reaction Status Date / Time No Known Allergies Allergy Verified 10/29/17 19:51 - Blood Blood Available: No Product(s) Available: None - Acknowledgements Anesthesia Type Planned: Epidural Pt an Appropriate Candidate for the Planned Anesthesia: Yes Alternatives and Risks of Anesthesia Discussed w Pt/Guardian: Yes Pt/Guardian Understands and Agrees with Anesthesia Plan: Yes PreAnesthesia Questionnaire - Past Health History Medical/Surgical History: Denies Medical/Surgical History HEENT History: Reports: Impaired Vision Other HEENT History: Wears contacts or glasses Cardiovascular History: Reports: Heart Murmur Other Cardiovascular History: Heart murmur during Respiratory History: Reports: None Gastrointestinal History: Reports: None Genitourinary History: Reports: None 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: Musculoskeletal History: Reports: None Neurological History: Reports: None Psychiatric History: Reports: None Endocrine/Metabolic History: Reports: None Hematologic History: Reports: Anemia Immunologic History: Reports: None Oncologic (Cancer) History: Reports: None Dermatologic History: Reports: Condyloma - Past Surgical History Female Surgical History: Reports: Section - Past Imaging History Past Imaging History: Reports: Cardiac Echo (Assistant Project Engineer told patient that she had mild murmur; Assistant Project Engineer stated no concerns in 2019; patient has been asymptomatic) - SUBSTANCE USE Tobacco Use Status *Q: Never Tobacco User Tobacco Use Within Last Twelve Months: No Second Hand Smoke Exposure: No Days Per Week of Alcohol Use: 0 Number of Drinks Per Day: 0 Total Drinks Per Week: 0 Recreational Drug Use History: No - HOME MEDS Home Medications: Home Meds . [No Known Home Meds] 10/29/17 [History] - CURRENT (IN HOUSE) MEDS Current Meds: Current Medications Oxytocin/Lactated Ringer's (Pitocin In Lr 10 Units/1,000 Ml) 10 unit in 1,000 mls @ 12 mls/hr IV TITRATE RUBI; Protocol Last Admin: 07/11/21 08:12 Dose: 2 munits/min, 12 mls/hr Documented by: Oxytocin/Lactated Ringer's (Pitocin In Lr 10 Units/1,000 Ml) 10 unit in 1,000 mls @ 500 mls/hr IV .CONTINUOUS RUBI Lactated Ringer's (Ringers, Lactated) 1,000 mls @ 40 mls/hr IV ASDIRECTED RUBI Last Admin: 07/11/21 08:08 Dose: 40 mls/hr Documented by: Nalbuphine HCl (Nalbuphine 10 Mg/1 Ml Vial) 10 mg IVPUSH Q2H PRN PRN Reason: Pain Ondansetron HCl (Ondansetron 4 Mg/2 Ml Sdv) 4 mg IVPUSH Q4H PRN PRN Reason: Nausea/Vomiting Sodium Chloride (Sodium Chloride 0.9% 10 Ml Syringe) 10 ml FLUSH ASDIRECTED PRN PRN Reason: Keep Vein Open
[2021-07-11] MEDS ORDERED: Bupivacaine/fentaNYL/NS 100 ML Bag EPIDUR PRN (12:01)
[2021-07-11] MEDS ORDERED: diphenhydrAMINE 50 MG/ML SDV IVPUSH PRN (12:01)
[2021-07-11] MEDS ORDERED: ePHEDrine 50 MG/ML SDV IVPUSH PRN (12:01)
[2021-07-11] MEDS ORDERED: fentaNYL 100 MCG/2 ML SDV ONE (12:07)
[2021-07-11] MEDS: fentaNYL 100 MCG/2 ML SDV EPIDUR PRN ×2 (12:10→18:14)
--- NOTE | 2021-07-11 13:15 | PCM.PNLD ---
Labor Progress Note - VS & Meds Vital Signs: Last Vital Signs Temp 37.2 C 07/11/21 07:13 Pulse 79 07/11/21 07:13 Resp 16 07/11/21 07:13 BP 115/75 07/11/21 07:13 Pulse Ox 97 07/11/21 07:13 Active Medications: Current Medications Diphenhydramine HCl (Diphenhydramine 50 Mg/Ml Sdv) 25 mg IVPUSH Q6H PRN PRN Reason: pruritis Ephedrine Sulfate (Ephedrine 50 Mg/Ml Sdv) 5 mg IVPUSH ASDIRECTED PRN PRN Reason: Hypotension Fentanyl (Fentanyl 100 Mcg/2 Ml Sdv) 100 mcg EPIDUR Q3H PRN PRN Reason: Pain Last Admin: 07/11/21 12:10 Dose: 100 mcg Documented by: Fentanyl/Bupivacaine HCl (Bupivacaine/Fentanyl/Ns 100 Ml Bag) 100 ml EPIDUR ASDIRECTED PRN PRN Reason: Pain Oxytocin/Lactated Ringer's (Pitocin In Lr 10 Units/1,000 Ml) 10 unit in 1,000 mls @ 12 mls/hr IV TITRATE RUBI; Protocol Last Titration: 07/11/21 11:31 Dose: 10 munits/min, 60 mls/hr Documented by: Oxytocin/Lactated Ringer's (Pitocin In Lr 10 Units/1,000 Ml) 10 unit in 1,000 mls @ 500 mls/hr IV .CONTINUOUS RUBI Lactated Ringer's (Ringers, Lactated) 1,000 mls @ 40 mls/hr IV ASDIRECTED RUBI Last Admin: 07/11/21 08:08 Dose: 40 mls/hr Documented by: Nalbuphine HCl (Nalbuphine 10 Mg/1 Ml Vial) 10 mg IVPUSH Q2H PRN PRN Reason: Pain Ondansetron HCl (Ondansetron 4 Mg/2 Ml Sdv) 4 mg IVPUSH Q4H PRN PRN Reason: Nausea/Vomiting Sodium Chloride (Sodium Chloride 0.9% 10 Ml Syringe) 10 ml FLUSH ASDIRECTED PRN PRN Reason: Keep Vein Open Discontinued Medications Fentanyl (Fentanyl 100 Mcg/2 Ml Sdv) Confirm Administered Dose 100 mcg .ROUTE .[facility]-MED ONE Stop: 07/11/21 12:08 - Uterine Contractions Uterine Monitoring Mode: External [place] Contraction Intensity: Moderate to Strong Uterine Resting Tone: Soft - Monitoring Monitor Mode: External Ultrasound Heart Rate (FHR) Baseline: 150 Heart Rate (FHR) Variability: Moderate (6-25 bpm) Accelerations: Present, 15x15 Decelerations: None Strip Review: Category I - Vaginal Exam Dilation (cm): 6 Effacement (Percent): 60 Station: -2 Cervical Position: Midposition - Labor Progress (Free Text) Labor Progress: Doing well. Was on 8 of pitocin. [place] contractions as a 10/10. Just done with epidural. Had RN decrease pitocin to 4. AROM done with release of large amount of clear fluid. Continue present management
--- NOTE | 2021-07-11 17:57 | PCM.PNLD ---
Labor Progress Note - VS & Meds Vital Signs: Last Vital Signs Temp 37.2 C 07/11/21 07:13 Pulse 79 07/11/21 07:13 Resp 16 07/11/21 07:13 BP 115/75 07/11/21 07:13 Pulse Ox 97 07/11/21 07:13 Active Medications: Current Medications Diphenhydramine HCl (Diphenhydramine 50 Mg/Ml Sdv) 25 mg IVPUSH Q6H PRN PRN Reason: pruritis Ephedrine Sulfate (Ephedrine 50 Mg/Ml Sdv) 5 mg IVPUSH ASDIRECTED PRN PRN Reason: Hypotension Fentanyl (Fentanyl 100 Mcg/2 Ml Sdv) 100 mcg EPIDUR Q3H PRN PRN Reason: Pain Last Admin: 07/11/21 12:10 Dose: 100 mcg Documented by: Fentanyl/Bupivacaine HCl (Bupivacaine/Fentanyl/Ns 100 Ml Bag) 100 ml EPIDUR ASDIRECTED PRN PRN Reason: Pain Last Admin: 07/11/21 13:30 Dose: 100 ml Documented by: Oxytocin/Lactated Ringer's (Pitocin In Lr 10 Units/1,000 Ml) 10 unit in 1,000 mls @ 12 mls/hr IV TITRATE RUBI; Protocol Last Titration: 07/11/21 15:50 Dose: 6 munits/min, 36 mls/hr Documented by: Oxytocin/Lactated Ringer's (Pitocin In Lr 10 Units/1,000 Ml) 10 unit in 1,000 mls @ 500 mls/hr IV .CONTINUOUS RUBI Lactated Ringer's (Ringers, Lactated) 1,000 mls @ 40 mls/hr IV ASDIRECTED RUBI Last Admin: 07/11/21 13:34 Dose: 40 mls/hr Documented by: Nalbuphine HCl (Nalbuphine 10 Mg/1 Ml Vial) 10 mg IVPUSH Q2H PRN PRN Reason: Pain Ondansetron HCl (Ondansetron 4 Mg/2 Ml Sdv) 4 mg IVPUSH Q4H PRN PRN Reason: Nausea/Vomiting Sodium Chloride (Sodium Chloride 0.9% 10 Ml Syringe) 10 ml FLUSH ASDIRECTED PRN PRN Reason: Keep Vein Open Discontinued Medications Fentanyl (Fentanyl 100 Mcg/2 Ml Sdv) Confirm Administered Dose 100 mcg .ROUTE .[facility]-MED ONE Stop: 07/11/21 12:08 - Uterine Contractions Uterine Monitoring Mode: External [place] Contraction Intensity: Moderate to Strong Uterine Resting Tone: Soft - Monitoring Monitor Mode: External Ultrasound Heart Rate (FHR) Baseline: 150 Heart Rate (FHR) Variability: Moderate (6-25 bpm) Accelerations: Present, 15x15 Decelerations: Early Strip Review: Category I - Vaginal Exam Dilation (cm): 7-8 Effacement (Percent): 80 Station: -1 Cervical Position: Anterior - Labor Progress (Free Text) Labor Progress: Doing well. Has made good cervical change since I was last here. Baby much lower in pelvis. IUPC placed to facilitate pitocin titration. Currently at 6.
[2021-07-11] MEDS ORDERED: Acetaminophen 325 MG Tab PO ONE (20:25)
[2021-07-11] MEDS ORDERED: Ampicillin 2 GM AdvVial IV ONE (20:26)
[2021-07-11] MEDS ORDERED: Sodium Chloride 0.9% 100 ML ONE (20:27)
--- NOTE | 2021-07-11 20:29 | PCM.SN.2 ---
- Free Text/Narrative Note: 2030 Patient complete and began pushing at 1950. Around 1925 did have a shift up in baseline, however, no fever. Just now though with temperature to 100.5. Diagnosis of chorioamnionitis. Will given Tylenol 975 mg now, 2 grams of ampicillin, and 375 mg of Gentamicin. Continue to work towards . Petty Hernandez MD Time Documentation
[2021-07-11] MEDS ORDERED: Ampicillin 2 GM in Sodium Chloride 0.9% 100 ML IV SCH (20:30)
--- NOTE | 2021-07-11 22:22 | PCM.DEL ---
L & D Note - General Info Date of Service: 07/11/21 - Delivery Note Labor: Induced by ARM, Induced by Oxytocin Cervical Ripening Method: Balloon Device Delivery Outcome: Livebirth Infant Delivery Method: Spontaneous Vaginal Delivery-Single Infant Delivery Mode: Vacuum Extraction Presentation: Right Occiput Anterior (KEON) Nuchal Cord: None Anesthesia Type: Epidural Amniotic Fluid Description: Clear Episiotomy Type: None Laceration: 2nd Degree, Perineal Suture type: Vicryl Suture size: 2-0 Placenta: Intact, Spontaneous Cord: 3 Vessels Estimated Blood Loss: 350 Resuscitation Needed: Yes : Bulb Syringe, Stimulated, Warmed, [place] Used, Warmer Used Delivery Comments (Free Text/Narrative):: The patient was pushing in the dorsal lithotomy position. Sterile vaginal exam complete/complete/+3 station. head in KEON presentation. Maternal pushing effort was good and the pelvis was felt to be adequate for an instrument assisted delivery. Given combination of maternal exhaustion, worsening fever, FHR changes with chorioamnionitis the decision was made to proceed with vacuum assisted vaginal delivery. The mushroom cup was placed without difficulty at 2155. Subsequent vacuum assisted vaginal delivery with pushing over 1 contraction. Total pressure applied 550 mm Hg. Total pop offs 0. Suction was removed following delivery of the head. No nuchal cord or Nuchal cord. The remainder of the delivered without difficulty. Delivery time 2157. The umbilical cord was clamped and cut and the was taken for assessment. Cord gas segment obtained. cord blood obtained. Placenta allowed time to separate and expelled intact. Inspection of the perineum following delivery with a 2nd degree laceration which was repaired with a 2-0 Vicryl in the typical fashion. Vacuum Extractor Progress Note - Alternative Labor Strategies Considered Alternative Labor Strategies Considered:: Reports: Yes Strategies Considered:: Reports: Contraction Intensity Adequate, Position Changes Used to Facilitate Rotation & Descent, Empty Bladder Indications Considered:: Reports: Yes Indications:: Reports: Shortening of 2nd Stage for Maternal Benefit, Suspicion of Immediate or Potential Compromise Time Out:: Reports: Yes - Patient Prepared Patient Prepared:: Reports: Yes Informed Consent:: Reports: Verbal Risks: Reports: Yes Risks Include:: Reports: Laceration, Shoulder Dystocia, Maternal Injury Anesthesia/Analgesia Adequate:: Reports: Yes - Probability of Success High Probability of Success:: Reports: Yes Weight Estimated:: Reports: AGA Patient Diabetic:: Reports: No Pelvis Adequate:: Reports: Yes Position:: KEON Asynclitic:: Reports: No Station:: +3 - Application Time Maximum Application Time & Number of Pop-Offs Predetermined:: Reports: Yes Maximum Pressure Maintained in [place] (cm Hg):: 550 Total Application Time (min): *max=20min: 2 Number of Times Cup Disengaged:: 0 Type of Vacuum Used:: Reports: Cup: Mushroom type Vacuum Extraction: Successful - Exit Strategy Exit strategy available:: Reports: Yes and resuscitation teams readily available:: Reports: Yes - General Info Date of Service: 07/11/21 - Patient Data Weight - Most Recent: 75.75 kg - Problem List & Annotations (1) 38 weeks gestation of SNOMED Code(s): 92113228 Code(s): Z3A.38 - 38 WEEKS GESTATION OF Status: Acute Current Visit: Yes (2) History of delivery SNOMED Code(s): 029419790 Code(s): Z98.891 - HISTORY OF UTERINE SCAR FROM PREVIOUS SURGERY Status: Acute Current Visit: Yes (3) Desires (vaginal after ) trial SNOMED Code(s): 645185716, 614289099 Code(s): O34.219 - MATERNAL CARE FOR UNSP TYPE SCAR FROM PREVIOUS DEL Status: Acute Current Visit: Yes (4) 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 SNOMED Code(s): 327054134, 267681512 Code(s): O36.1930 - MATERNAL CARE FOR OTH ISOIMMUNIZATION, THIRD TRIMESTER, UNSP Status: Acute Current Visit: Yes (5) Rubella non-immune status, antepartum SNOMED Code(s): 776322119 Code(s): O99.891 - OTH DISEASES AND CONDITIONS COMPLICATING ; Z28.3 - UNDERIMMUNIZATION STATUS Status: Acute Current Visit: Yes (6) Chorioamnionitis SNOMED Code(s): 51863143 Code(s): O41.1290 - CHORIOAMNIONITIS, UNSP TRIMESTER, NOT APPLICABLE OR UNSP Status: Acute Current Visit: Yes Qualifiers: Fetus number: single or unspecified fetus Trimester: third trimester Qualified Code(s): O41.1230 - Chorioamnionitis, third trimester, not applicable or unspecified (7) Vacuum-assisted vaginal delivery SNOMED Code(s): 99310135740544987 Code(s): Z37.9 - OUTCOME OF DELIVERY, UNSPECIFIED Status: Acute Current Visit: Yes (8) , delivered, current hospitalization SNOMED Code(s): 123392991 Code(s): O34.219 - MATERNAL CARE FOR UNSP TYPE SCAR FROM PREVIOUS DEL Status: Acute Current Visit: Yes - Problem List Review Problem List Initiated/Reviewed/Updated: Yes - Assessment Assessment:: PPD#0 - Plan Plan:: * S/p Amp and gentamicin for chorioamnionitis. No further antibiotics needed * Breast feeding * Routine cares * Discharge home in 2 days
[2021-07-12] MEDS ORDERED: Acetaminophen 325 MG Tab PO PRN (00:11)
[2021-07-12] MEDS ORDERED: Benzocaine/Menthol 20%-0.5% Spray 78 GM Cannister TOP PRN (00:11)
[2021-07-12] MEDS ORDERED: Docusate Sodium 100 MG Cap PO PRN (00:11)
[2021-07-12] MEDS: Ibuprofen 600 MG Tab PO PRN (00:44)
[2021-07-12] MEDS: Witch Hazel Medicated Pads 40/Jar TOP PRN (00:46)
--- NOTE | 2021-07-12 07:01 | PCM48HPAN ---
Post Anesthesia Note - EVALUATION WITHIN 48HRS OF ANESTHETIC Vital Signs in Normal Range: Yes Patient Participated in Evaluation: Yes Respiratory Function Stable: Yes Airway Patent: Yes Cardiovascular Function Stable: Yes Hydration Status Stable: Yes Pain Control Satisfactory: Yes Nausea and Vomiting Control Satisfactory: Yes Mental Status Recovered: Yes Vital Signs: Last Vital Signs Temp 36.2 C 07/12/21 04:14 Pulse 76 07/12/21 04:14 Resp 14 07/12/21 04:14 BP 105/44 L 07/12/21 04:14 Pulse Ox 96 07/12/21 04:14
--- NOTE | 2021-07-12 08:15 | PCM.PNPP ---
- General Info Date of Service: 07/12/21 Functional Status: Reports: Pain Controlled, Tolerating Diet, Ambulating, Urinating - Review of Systems General: Reports: No Symptoms Pulmonary: Reports: No Symptoms Cardiovascular: Reports: No Symptoms Gastrointestinal: Reports: No Symptoms Genitourinary: Reports: No Symptoms - Patient Data Vital Signs - Most Recent: Last Vital Signs Temp 36.2 C 07/12/21 04:14 Pulse 76 07/12/21 04:14 Resp 14 07/12/21 04:14 BP 105/44 L 07/12/21 04:14 Pulse Ox 96 07/12/21 04:14 Weight - Most Recent: 75.75 kg I&O - Last 24 Hours: Intake & Output 07/11/21 07/12/21 07/12/21 22:59 06:59 14:59 Intake Total 120 3800 Output Total 650 105 Balance -530 3695 Lab Results - Last 24 Hours: Laboratory Results - last 24 hr 07/11/21 07/11/21 Range/Units 07:32 08:00 SARS-CoV-2 RNA (NIKITA) Negative (NEGATIVE) Blood Type O POSITIVE Gel Antibody Screen Positive Med Orders - Current: Current Medications Acetaminophen (Acetaminophen 325 Mg Tab) 650 mg PO Q4H PRN PRN Reason: mild pain or fever Benzocaine/Menthol (Benzocaine/Menthol 20%-0.5% [place] 78 Gm Cannister) 0 gm TOP ASDIRECTED PRN PRN Reason: Perineal Comfort Measure Last Admin: 07/12/21 00:45 Dose: 1 canister Documented by: Docusate Sodium (Docusate Sodium 100 Mg Cap) 100 mg PO BID PRN PRN Reason: Constipation Last Admin: 07/12/21 00:44 Dose: 100 mg Documented by: Ibuprofen (Ibuprofen 600 Mg Tab) 600 mg PO Q6H PRN PRN Reason: Mild pain or fever Last Admin: 07/12/21 00:44 Dose: 600 mg Documented by: Tamara Nguyen (Witch Wendy Medicated Pads 40/Jar) 1 pad TOP ASDIRECTED PRN PRN Reason: Perineal Comfort Measure Last Admin: 07/12/21 00:46 Dose: 1 tub Documented by: Discontinued Medications Acetaminophen (Acetaminophen 325 Mg Tab) 975 mg PO NOW ONE Stop: 07/11/21 20:26 Last Admin: 07/11/21 20:30 Dose: 975 mg Documented by: Ampicillin Sodium (Ampicillin 2 Gm Advvial) Confirm Administered Dose 2 gm IV .STK-MED ONE Stop: 07/11/21 20:27 Last Admin: 07/11/21 20:34 Dose: Not Given Documented by: Bupivacaine HCl (Bupivacaine 0.25% 10 Ml Sdv) 10 ml .ROUTE .STK-MED ONE Stop: 07/11/21 00:01 Bupivacaine HCl (Bupivacaine 0.25% 10 Ml Sdv) 10 ml .ROUTE .STK-MED ONE Stop: 07/11/21 00:01 Diphenhydramine HCl (Diphenhydramine 50 Mg/Ml Sdv) 25 mg IVPUSH Q6H PRN PRN Reason: pruritis Ephedrine Sulfate (Ephedrine 50 Mg/Ml Sdv) 5 mg IVPUSH ASDIRECTED PRN PRN Reason: Hypotension Fentanyl (Fentanyl 100 Mcg/2 Ml Sdv) 100 mcg EPIDUR Q3H PRN PRN Reason: Pain Last Admin: 07/11/21 18:14 Dose: 100 mcg Documented by: Fentanyl (Fentanyl 100 Mcg/2 Ml Sdv) Confirm Administered Dose 100 mcg .ROUTE .STK-MED ONE Stop: 07/11/21 12:08 Last Admin: 07/11/21 22:46 Dose: Not Given Documented by: Fentanyl/Bupivacaine HCl (Bupivacaine/Fentanyl/Ns 100 Ml Bag) 100 ml EPIDUR ASDIRECTED PRN PRN Reason: Pain Last Admin: 07/11/21 13:30 Dose: 100 ml Documented by: Oxytocin/Lactated Ringer's (Pitocin In Lr 10 Units/1,000 Ml) 10 unit in 1,000 mls @ 12 mls/hr IV TITRATE RUBI; Protocol Last Titration: 07/11/21 21:58 Dose: 166.5 munits/min, 999 mls/hr Documented by: Oxytocin/Lactated Ringer's (Pitocin In Lr 10 Units/1,000 Ml) 10 unit in 1,000 mls @ 500 mls/hr IV .CONTINUOUS RUBI Last Admin: 07/11/21 22:40 Dose: 500 mls/hr Documented by: Lactated Ringer's (Ringers, Lactated) 1,000 mls @ 40 mls/hr IV ASDIRECTED RUBI Last Admin: 07/11/21 20:32 Dose: 40 mls/hr Documented by: Ampicillin Sodium 2 gm/ Sodium (Chloride) 100 mls @ 200 mls/hr IV Q6H RUBI Last Admin: 07/11/21 20:30 Dose: 200 mls/hr Documented by: Gentamicin Sulfate 380 mg/ (Sodium Chloride) 109.5 mls @ 109.5 mls/hr IV ONETIME ONE Stop: 07/11/21 21:25 Last Admin: 07/11/21 20:47 Dose: 109.5 mls/hr Documented by: Sodium Chloride (Normal Saline) Confirm Administered Dose 100 mls @ as directed .ROUTE .STK-MED ONE Stop: 07/11/21 20:28 Last Admin: 07/11/21 20:34 Dose: Not Given Documented by: Nalbuphine HCl (Nalbuphine 10 Mg/1 Ml Vial) 10 mg IVPUSH Q2H PRN PRN Reason: Pain Ondansetron HCl (Ondansetron 4 Mg/2 Ml Sdv) 4 mg IVPUSH Q4H PRN PRN Reason: Nausea/Vomiting Last Admin: 07/11/21 21:06 Dose: 4 mg Documented by: Sodium Chloride (Sodium Chloride 0.9% 10 Ml Syringe) 10 ml FLUSH ASDIRECTED PRN PRN Reason: Keep Vein Open - Infant Interaction Disposition, : Loving in Room with Family Interaction: Holding Infant Feeding: Attempted ; Nursed Fair/Poor Support Person: - Recovery Exam Fundal Tone: Firm Fundal Level: At Umbilicus Fundal Placement: Midline Lochia Amount: Small Lochia Color: Rubra/Red Perineum Description: Other (see below) Other Perinuem Description: 2nd degree laceration with repair Episiotomy/Laceration: Approximated Bladder Status: Voiding Urinary Elimination: Voided - Exam General: Alert, Oriented, Cooperative GI/Abdominal Exam: Soft, Non-Tender - Problem List & Annotations (1) 38 weeks gestation of SNOMED Code(s): 35528989 Code(s): Z3A.38 - 38 WEEKS GESTATION OF Status: Acute Current Visit: Yes (2) History of delivery SNOMED Code(s): 920350868 Code(s): Z98.891 - HISTORY OF UTERINE SCAR FROM PREVIOUS SURGERY Status: Acute Current Visit: Yes (3) Desires (vaginal after ) trial SNOMED Code(s): 626685156, 981436449 Code(s): O34.219 - MATERNAL CARE FOR UNSP TYPE SCAR FROM PREVIOUS DEL Status: Acute Current Visit: Yes (4) 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 SNOMED Code(s): 856473063, 367717737 Code(s): O36.1930 - MATERNAL CARE FOR OTH ISOIMMUNIZATION, THIRD TRIMESTER, UNSP Status: Acute Current Visit: Yes (5) Rubella non-immune status, antepartum SNOMED Code(s): 137613012 Code(s): O99.891 - OTH DISEASES AND CONDITIONS COMPLICATING ; Z28.3 - UNDERIMMUNIZATION STATUS Status: Acute Current Visit: Yes (6) Chorioamnionitis SNOMED Code(s): 43217008 Code(s): O41.1290 - CHORIOAMNIONITIS, UNSP TRIMESTER, NOT APPLICABLE OR UNSP Status: Acute Current Visit: Yes Qualifiers: Fetus number: single or unspecified fetus Trimester: third trimester Qualified Code(s): O41.1230 - Chorioamnionitis, third trimester, not applicable or unspecified (7) Vacuum-assisted vaginal delivery SNOMED Code(s): 44071852047955718 Code(s): Z37.9 - OUTCOME OF DELIVERY, UNSPECIFIED Status: Acute Current Visit: Yes (8) , delivered, current hospitalization SNOMED Code(s): 466467546 Code(s): O34.219 - MATERNAL CARE FOR UNSP TYPE SCAR FROM PREVIOUS DEL Status: Acute Current Visit: Yes - Problem List Review Problem List Initiated/Reviewed/Updated: Yes - My Orders Last 24 Hours: My Active Orders 07/11/21 07:32 ANTIBODY IDENTIFICATION [BBK] Routine HEP C VIRUS AB [REF] Routine RAPID PLASMA REAGIN,RPR [CHEM] Routine TYPE AND SCREEN [BBK] Routine 07/12/21 00:11 Acetaminophen [TylenoL] 650 mg PO Q4H PRN Benzocaine/Menthol [Dermoplast Pain Relief 20%-0.5% [place]] See Dose Instructions TOP ASDIRECTED PRN Docusate Sodium [Colace] 100 mg PO BID PRN Ibuprofen [Motrin] 600 mg PO Q6H PRN witch Wendy [Tucks] 1 pad TOP ASDIRECTED PRN Heat Therapy [OM.PC] PRN 07/12/21 00:11 Activity as Tolerated [RC] PER UNIT ROUTINE Vital Signs [RC] ,,, Assess Lochia [WOMSER] Per Unit Routine Assess Uterine Involution [WOMSER] Per Unit Routine Breast Pump [WOMSER] Per Unit Routine Ice Therapy [OM.PC] Per Unit Routine Perineal Care [OM.PC] Per Unit Routine Peripheral IV Discontinue [OM.PC] Routine Sitz Bath [OM.PC] Per Unit Routine 07/12/21 Dinner Regular Diet [DIET] 07/13/21 00:11 Heat Therapy [OM.PC] PRN - Assessment Assessment:: PPD#1 - Plan Plan:: d * Breast feeding * Routine cares * Discharge home tomorrow
[2021-07-13] MEDS: Ibuprofen 600 MG Tab PO PRN (00:57)
--- NOTE | 2021-07-13 07:07 | PCM.DCSUM1 ---
Discharge Summary - Discharge Data Discharge Date: 07/13/21 Discharge Disposition: Home, Self-Care 01 Condition: Good - Referral to Home Health Primary Care Physician: Petty Hernandez MD - Discharge Diagnosis/Problem(s) (1) 38 weeks gestation of SNOMED Code(s): 59516007 ICD Code: Z3A.38 - 38 WEEKS GESTATION OF Status: Acute Current Visit: Yes (2) History of delivery SNOMED Code(s): 461916775 ICD Code: Z98.891 - HISTORY OF UTERINE SCAR FROM PREVIOUS SURGERY Status: Acute Current Visit: Yes (3) Desires (vaginal after ) trial SNOMED Code(s): 994815285, 143954112 ICD Code: O34.219 - MATERNAL CARE FOR UNSP TYPE SCAR FROM PREVIOUS DEL Status: Acute Current Visit: Yes (4) 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 SNOMED Code(s): 629696214, 383986591 ICD Code: O36.1930 - MATERNAL CARE FOR OTH ISOIMMUNIZATION, THIRD TRIMESTER, UNSP Status: Acute Current Visit: Yes (5) Rubella non-immune status, antepartum SNOMED Code(s): 501713978 ICD Code: O99.891 - OTH DISEASES AND CONDITIONS COMPLICATING ; Z28.3 - UNDERIMMUNIZATION STATUS Status: Acute Current Visit: Yes (6) Chorioamnionitis SNOMED Code(s): 49022445 ICD Code: O41.1290 - CHORIOAMNIONITIS, UNSP TRIMESTER, NOT APPLICABLE OR UNSP Status: Acute Current Visit: Yes Qualifiers: Fetus number: single or unspecified fetus Trimester: third trimester Homero lified Code(s): O41.1230 - Chorioamnionitis, third trimester, not applicable or unspecified (7) Vacuum-assisted vaginal delivery SNOMED Code(s): 95785516371605031 ICD Code: Z37.9 - OUTCOME OF DELIVERY, UNSPECIFIED Status: Acute Current Visit: Yes (8) , delivered, current hospitalization SNOMED Code(s): 366084305 ICD Code: O34.219 - MATERNAL CARE FOR UNSP TYPE SCAR FROM PREVIOUS DEL Status: Acute Current Visit: Yes - Patient Summary/Data Complications: None Consults: None Recommended Follow-up Testing/Procedures: Follow up in 3 weeks for check Hospital Course: 30 y/o at 38 3/7 wks who presented for IOL/TOLAC for maternal atypical antibody. Induction done with balloon, pitocin, and AROM. Progressed well to complete dilation. Did have a fever and findings of tachycardia consistent with chorioamnionitis. Was given Amp and Gent. Did eventually undergo a Vacuum assisted . See delivery note. did well and was discharged home on PPD#2 - Patient Instructions Diet: Regular Diet as Tolerated Activity: As Tolerated Activity, Other: Pelvic rest for 6 weeks Driving: May Drive Today Showering/Bathing: May Shower Showering/Bathing, Other: May Bathe Notify Provider of: Fever, Increased Pain, Swelling and Redness, Drainage, Nausea and/or Vomiting - Discharge Plan *PRESCRIPTION DRUG MONITORING PROGRAM REVIEWED*: No *COPY OF PRESCRIPTION DRUG MONITORING REPORT IN PATIENT JAMAL: No Home Medications: Home Meds Docusate Sodium [Colace] 100 mg PO BID PRN cap 07/13/21 [Rx] Ibuprofen [Motrin] 600 mg PO Q6H PRN tablet 07/13/21 [Rx] Patient Handouts: and Self-Care, [id number], Care After Vaginal Delivery Referrals: Petty Hernandez MD [Primary Care Provider] - (3 weeks for check ) - Discharge Summary/Plan Comment DC Time >30 min.: No Total # of Minutes for Discharge Time: 15 - Patient Data Vitals - Most Recent: Last Vital Signs Temp 36.3 C 07/13/21 03:59 Pulse 85 07/13/21 03:59 Resp 16 07/13/21 03:59 BP 104/59 L 07/13/21 03:59 Pulse Ox 97 07/13/21 03:59 Weight - Most Recent: 75.75 kg I&O - Last 24 hours: Intake & Output 07/12/21 07/13/21 07/13/21 22:59 06:59 14:59 Intake Total 320 Balance 320 Lab Results - Last 24 hrs: Laboratory Results - last 24 hr 07/11/21 07/11/21 Range/Units 07:32 07:32 RPR Non-reactive (NONREACTIVE) Blood Type O POSITIVE Gel Antibody Screen Positive Antibody Identification Anti-E Antigen Typing E Antigen - NEGATIVE Med Orders - Current: Current Medications Acetaminophen (Acetaminophen 325 Mg Tab) 650 mg PO Q4H PRN PRN Reason: mild pain or fever Benzocaine/Menthol (Benzocaine/Menthol 20%-0.5% [place] 78 Gm Cannister) 0 gm TOP ASDIRECTED PRN PRN Reason: Perineal Comfort Measure Last Admin: 07/12/21 00:45 Dose: 1 canister Documented by: Docusate Sodium (Docusate Sodium 100 Mg Cap) 100 mg PO BID PRN PRN Reason: Constipation Last Admin: 07/12/21 00:44 Dose: 100 mg Documented by: Ibuprofen (Ibuprofen 600 Mg Tab) 600 mg PO Q6H PRN PRN Reason: Mild pain or fever Last Admin: 07/13/21 00:57 Dose: 600 mg Documented by: Tamara Nguyen (Tamara Nguyen Medicated Pads 40/Jar) 1 pad TOP ASDIRECTED PRN PRN Reason: Perineal Comfort Measure Last Admin: 07/12/21 00:46 Dose: 1 tub Documented by: Discontinued Medications Acetaminophen (Acetaminophen 325 Mg Tab) 975 mg PO NOW ONE Stop: 07/11/21 20:26 Last Admin: 07/11/21 20:30 Dose: 975 mg Documented by: Ampicillin Sodium (Ampicillin 2 Gm Advvial) Confirm Administered Dose 2 gm IV .STK-MED ONE Stop: 07/11/21 20:27 Last Admin: 07/11/21 20:34 Dose: Not Given Documented by: Bupivacaine HCl (Bupivacaine 0.25% 10 Ml Sdv) 10 ml .ROUTE .STK-MED ONE Stop: 07/11/21 00:01 Bupivacaine HCl (Bupivacaine 0.25% 10 Ml Sdv) 10 ml .ROUTE .STK-MED ONE Stop: 07/11/21 00:01 Diphenhydramine HCl (Diphenhydramine 50 Mg/Ml Sdv) 25 mg IVPUSH Q6H PRN PRN Reason: pruritis Ephedrine Sulfate (Ephedrine 50 Mg/Ml Sdv) 5 mg IVPUSH ASDIRECTED PRN PRN Reason: Hypotension Fentanyl (Fentanyl 100 Mcg/2 Ml Sdv) 100 mcg EPIDUR Q3H PRN PRN Reason: Pain Last Admin: 07/11/21 18:14 Dose: 100 mcg Documented by: Fentanyl (Fentanyl 100 Mcg/2 Ml Sdv) Confirm Administered Dose 100 mcg .ROUTE .STK-MED ONE Stop: 07/11/21 12:08 Last Admin: 07/11/21 22:46 Dose: Not Given Documented by: Fentanyl/Bupivacaine HCl (Bupivacaine/Fentanyl/Ns 100 Ml Bag) 100 ml EPIDUR ASDIRECTED PRN PRN Reason: Pain Last Admin: 07/11/21 13:30 Dose: 100 ml Documented by: Oxytocin/Lactated Ringer's (Pitocin In Lr 10 Units/1,000 Ml) 10 unit in 1,000 mls @ 12 mls/hr IV TITRATE RUBI; Protocol Last Titration: 07/11/21 21:58 Dose: 166.5 munits/min, 999 mls/hr Documented by: Oxytocin/Lactated Ringer's (Pitocin In Lr 10 Units/1,000 Ml) 10 unit in 1,000 mls @ 500 mls/hr IV .CONTINUOUS RUBI Last Admin: 07/11/21 22:40 Dose: 500 mls/hr Documented by: Lactated Ringer's (Ringers, Lactated) 1,000 mls @ 40 mls/hr IV ASDIRECTED RUBI Last Admin: 07/11/21 20:32 Dose: 40 mls/hr Documented by: Ampicillin Sodium 2 gm/ Sodium (Chloride) 100 mls @ 200 mls/hr IV Q6H RUBI Last Admin: 07/11/21 20:30 Dose: 200 mls/hr Documented by: Gentamicin Sulfate 380 mg/ (Sodium Chloride) 109.5 mls @ 109.5 mls/hr IV ONETIME ONE Stop: 07/11/21 21:25 Last Admin: 07/11/21 20:47 Dose: 109.5 mls/hr Documented by: Sodium Chloride (Normal Saline) Confirm Administered Dose 100 mls @ as directed .ROUTE .STK-MED ONE Stop: 07/11/21 20:28 Last Admin: 07/11/21 20:34 Dose: Not Given Documented by: Nalbuphine HCl (Nalbuphine 10 Mg/1 Ml Vial) 10 mg IVPUSH Q2H PRN PRN Reason: Pain Ondansetron HCl (Ondansetron 4 Mg/2 Ml Sdv) 4 mg IVPUSH Q4H PRN PRN Reason: Nausea/Vomiting Last Admin: 07/11/21 21:06 Dose: 4 mg Documented by: Sodium Chloride (Sodium Chloride 0.9% 10 Ml Syringe) 10 ml FLUSH ASDIRECTED PRN PRN Reason: Keep Vein Open
[2021-07-13] MEDS: Witch Hazel Medicated Pads 40/Jar TOP PRN (08:43)
[2021-07-13 23:14] VITALS: BP 121/75; PULSE 90
== END 2021-07-13 20:30 | disposition home or self-care (01) | DRG 560 ==
LOC: JD.OBCHECK 07:10 → JD.OB 07:12 → OBSVTOIN 21:57 → JD.OB 21:58
PROVIDERS: ADMIT Obstetrics & Gynecology; ATTEND Obstetrics & Gynecology
PROC: 10D07Z6 Extraction of Products of Conception, Vacuum, Via Natural or Artificial Opening (ICD-10-PCS; principal; 2021-07-11)
PROC: 10907ZC Drainage of Amniotic Fluid, Therapeutic from Products of Conception, Via Natural or Artificial Opening (ICD-10-PCS; 2021-07-11)
PROC: 3E033VJ Introduction of Other Hormone into Peripheral Vein, Percutaneous Approach (ICD-10-PCS; 2021-07-11)
PROC: 0U7C7ZZ Dilation of Cervix, Via Natural or Artificial Opening (ICD-10-PCS; 2021-07-11)
PROC: 0KQM0ZZ Repair Perineum Muscle, Open Approach (ICD-10-PCS; 2021-07-11)
PROC: 3E0R3BZ Introduction of Anesthetic Agent into Spinal Canal, Percutaneous Approach (ICD-10-PCS; 2021-07-11)
PROC: 4A1HXCZ Monitoring of Products of Conception, Cardiac Rate, External Approach (ICD-10-PCS; 2021-07-11)
DX: O36.1930 Maternal care for other isoimmunization, third trimester, not applicable or unspecified (principal); Z3A.38 38 weeks gestation of pregnancy; Z37.0 Single live birth; O41.1230 Chorioamnionitis, third trimester, not applicable or unspecified; Z20.822 Contact with and (suspected) exposure to COVID-19
CPT/HCPCS: 01967; 36415; 51701; 51702; 59025; 59409; 85027; 86592; 86803; 86850; 86870; 86900; 86901; A9270-GY; C1726; J0290; J1580; J2405; J2590; J3010; J3490; J7120; U0002